=== PATIENT | female | born 1940 | race Caucasian/White ===

== ENCOUNTER 2022-02-12 08:37 | Day surgery (SDC) | payer OTHER, SELFPAY ==
[2022-02-12] MEDS: Tropicam./Phenyleph. (1/2.5%) 5 ML BTL OS ×3 (09:25→09:46)
[2022-02-12 09:26] VITALS: BP 144/74; PULSE 79; RESP 16; TEMP 36.5; O2SAT 98
--- NOTE | 2022-02-12 09:53 | ANES.PREOP_ITS ---
General Info Date of Service Date Performed: 02/12/22 Height: 5 ft 7.5 in Weight: 112.2 kg Body Mass Index (BMI): 38.1 Surgical Procedure: Operation Date: 02/12/22 11:40 Proposed Procedure Side Surgeon p Cataract Extraction with IOL Implant Left Roque Llanes MD Meds Allergies and Home Medications Allergies Allergy/AdvReac Type Severity Reaction Status Date / Time No Known Allergies Allergy Unverified 02/09/22 14:02 Home Medication Medication Instructions Recorded acarbose 50 mg tablet 1 tab PO TID 02/09/22 amlodipine 5 mg tablet 1 tab PO DAILY 02/09/22 atorvastatin 10 mg tablet 1 tab PO DAILY 02/09/22 betamethasone dipropionate 0.05 % 1 applic topical BID 02/09/22 topical cream biotin 5 mg tablet 5 mg PO DAILY 02/09/22 cholecalciferol (vitamin D3) 125 125 mcg PO DAILY 02/09/22 mcg (5,000 unit) tablet (Vitamin D3) glipizide 10 mg tablet, extended 2 tab PO QAM 02/09/22 release 24 hr insulin glargine 100 unit/mL (3 34 unit subcut BID 02/09/22 mL) subcutaneous pen (Basaglar KwikPen U-100 Insulin) lactobacillus combination no.4 3 3 mmu cells PO DAILY 02/09/22 billion cell capsule (Probiotic) vitamin B complex-vitamin C-folic 1 tab PO DAILY 02/09/22 acid 400 mcg tablet Current Visit Medications: Current Medications Generic Name Dose Route Start Last Admin Trade Name Freq PRN Reason Stop Dose Admin Acetaminophen 1,000 mg 02/12/22 06:00 Acetaminophen 500 Mg Tab PO Q4H PRN PRN Miscellaneous Medication 0 ml 02/12/22 06:00 Prednisolone 1%, Moxifloxacin 0.5%, Nepafenac 0.1% 5ml Btl OS DIRECTED [facility] Miscellaneous Medication 0 ml 02/12/22 06:00 02/12/22 09:46 Tropicam./Phenyleph. (1/2.5%) 5 Ml Btl OS 1 drp DIRECTED JOSSELINE Administration Tetracaine HCl 0 ml 02/12/22 06:00 Tetracaine 0.5% 4 Ml Btl OS DIRECTED [facility] Medical History Medical History (Updated 02/12/22 @ 10:16 by Roque Llanes MD) Breast cancer been in remission x10 years Cataract CKD (chronic kidney disease) Colon cancer been in remission x10 years Diabetes mellitus HLD (hyperlipidemia) [place] (hard of hearing) HTN (hypertension) Uterine cancer been in remission x 10 years Medical History Comments:: 02/12/22 pt reports nausea when laid flat Surgical History Surgical History History of partial mastectomy Hx of cholecystectomy Hx of hysterectomy Tobacco Smoking/Tobacco Use Status: Never Alcohol Alcohol Intake: never Substance Use Substance use: Never Substance use type: does not use Vital Signs and Lab Results Vital Signs Most Recent Vital Signs in EMR: Most Recent Vital Signs Temp Pulse Resp BP Pulse Ox 36.5 C 79 16 144/74 H 98 02/12/22 09:26 02/12/22 09:26 02/12/22 09:26 02/12/22 09:26 02/12/22 09:26 Point of Care Results Point of Care Results: 143 Lab Results Blood Type / Crossmatch: No Data to Display Complete Blood Count: No Data to Display Complete Metabolic Panel: No Data to Display Liver Function Panel: No Data to Display Coagulation Panel: No Data to Display Cardiac Panel: No Data to Display Arterial Blood Gas: No Data to Display Venous Blood Gas: No Data to Display Pancreas Panel: No Data to Display Thyroid Panel: No Data to Display Infectious Disease: No Data to Display Blood Cultures: No Data to Display Toxicology Panel: No Data to Display Anesthesia Assessment and Plan Anesthesia History Personal History: No History of Anesthesia Complications Family History: No Family History of Anesthesia Complications Exercise Tolerance Exercise Tolerance: Metabolic Equivalents>4 Pertinent Negatives Pertinent Negatives: No Symptoms of GERD, No Major Cardiovascular Symptoms or Complaints and No Major Pulmonary Symptoms or Complaints Cardiac & Pulmonary Exam Cardiac Exam: Normal S1/S2 Heart Sounds Pulmonary Exam: Clear Bilateral Breath Sounds Implantable Cardiac Device Does patient have a Pacemaker or an ICD?: No Airway Exam Known Difficult Airway: No Mallampati Class: 2 Mouth Opening: Normal (> 3cm) Thyromental Distance: Greater than 3 cm Neck Range of Motion: Full ROM Neck Circumference: Normal Teeth Condition: Normal Dentition ASA Classification ASA Score: ASA 3 Emergency Case?: No NPO Status NPO Status: NPO Clears >2 hours, Solids >8 hours Anesthesia Plan Resuscitation Status: Full Code Anesthesia Technique: MAC Anesthesia Airway Planned: Natural Airway Monitors Used: Standard Monitors
[2022-02-12 10:23] VITALS: BMI 38.1
[2022-02-12] MEDS: Balanced Salt Soln.-PLUS 500 ML BAG (10:37)
[2022-02-12] MEDS: Tetracaine 0.5% 4 ML BTL OS (10:37)
[2022-02-12] MEDS: Lidocaine 2% Jelly 6 ML SYR (10:39)
[2022-02-12] MEDS: Povidone-Iodine Ophth 30 ML BTL (10:40)
[2022-02-12 10:58] VITALS: BP 117/94; PULSE 72; RESP 16; TEMP 36.1; O2SAT 97
--- NOTE | 2022-02-12 10:59 | ROE_ITS ---
Date of service: 02/12/22 Time of Service: 10:59 Operative Note Operative Note DATE OF PROCEDURE: 02/12/22 PRE-OP DIAGNOSIS: Nuclear/cortical cataract, left eye POST-OP DIAGNOSIS: same PROCEDURE: Cataract extraction using phacoemulsification with intraocular lens implant, left eye SURGEON: Roque Llanes ANESTHESIA TYPE: Local By Surgeon and MAC Refer to Anesthesia Record PATHOLOGY: none sent COMPLICATIONS: None Patient was transported to: same day Patient's condition: stable Implants: Kv[employer] Kvng / [employer] Tecnis [id number] Indications: Progressive decreased vision due to cataract, left eye Procedure Description: CATARACT SURGERY OPERATIVE REPORT PREOPERATIVE DIAGNOSIS: 1. Nuclear/cortical cataract, left eye POSTOPERATIVE DIAGNOSIS: Same OPERATION: 1. Cataract extraction using phacoemulsification with posterior chamber intraocular lens implant, left eye. IOL: IOL Balance Sheet Analyst/Model: Kvng [employer] Kvng / SOLOMON Tecnis [id number] IOL Power: + 19.0 diopters IOL Serial Number: [id number] Optic Diameter: 6.0 mm Haptic/Overall Diameter: 13.0 mm PHACO INFO: Elpid[employer]ange[employer] Vision System with OZil and Active Fluidics Cumulative Dispersed Energy (CDE): 24.84 seconds SURGEON: Roque Llanes MD, ZEINAB ANESTHESIA: Monitored [facility] (MAC), with local sub-tenon's anesthetic infiltration COMPLICATIONS: None SPECIMENS: None INDICATIONS FOR PROCEDURE: The patient is an 81-year-old lady with history of diminished visual acuity in her left eye secondary to development of significant nuclear and cortical cataract. The option of cataract surgery was offered to the patient and she wished to proceed she has a history of myopia and does a lot of near work. She would like to remain myopic postoperatively. Postoperative refractive target is -2.50 diopters. PROCEDURE: The correct surgical eye was identified and marked as the left eye and the pupil was dilated in the preoperative area using mydriatics and cycloplegics. The dilated pupil size was 7.0 mm. the patient elected to proceed without oral sedation. The patient was brought to the operating room where cardiopulmonary monitoring was instituted and surgical time-out was performed, confirming the correct operative eye and IOL power. Topical anesthesia was administered and ophthalmic povidone-iodine 5% was instilled into the conjunctival fornices. Lidocaine gel was applied to the cornea and the hunter-ocular area was prepped with Betadine 10% solution and draped in the usual sterile fashion for intraocular surgery, including an aperture drape. A Tegaderm transparent film dressing was cut in half and used to cover the lashes and lid margins. Care was taken to sequester the lashes and lid margins under the Tegaderm dressing. A lid speculum was placed between the lids of the operative eye and the Elpidio LuxOR Revalia operating microscope was maneuvered into position. Cortney scissors were then used to make a conjunctival buttonhole approximately 6mm posterior to the limbus in the inferonasal quadrant. Blunt dissection was carried out to expose bare sclera, and a blunt-tipped sub-tenon?s anesthesia cannula was introduced and passed posteriorly along the globe where non- preserved plain lidocaine was injected into posterior sub-Tenon?s space. A sideport knife was used to make a paracentesis port superiorly/superiortemporally. Intraocular phenylephrine/lidocaine was injected int the anterior chamber.. The anterior chamber was filled with viscoelastic. A keratome knife was used to construct a 2-plane near-clear corneal tunnel extending 2.0mm into clear cornea temporally. A flap was raised on the anterior capsule and capsulorhexis forceps were used to complete a continuous curvilinear capsulorhexis of 4.8 mm. Balanced salt solution was then used to perform cortical cleaving hydrodissection and nuclear hydrodelineation until the lens could be freely rotated within the capsular bag. The lens nucleus was then disassembled and removed within the capsular bag and iris plane using phacoemulsification. Residual cortical material was removed using the 45-degree angled silicone I/A tip with 0.3mm port. The posterior capsule was carefully polished to remove as much residual lens epithelial cells as safely possible. The capsular bag was then inflated and the anterior chamber deepened with viscoelastic. The lens implant described above was inserted into the capsular bag using the SOLOMON [place] Injector. A Kuglen hook was used to dial the IOL into position. Residual viscoelastic was then removed first from posterior to the IOL, then from the anterior chamber using the I/A handpiece. The lens implant was noted to center nicely within the capsular bag. The incisions were stromally hydrated, and the anterior chamber was reformed using BSS. Then 0.5cc of moxifloxacin 1.0mg/ml were injected into the capsular bag and anterior chamber. The incisions were checked with a Weck spear and found to be secure. Several drops of ophthalmic povidone-iodine 5% were then applied to the eye followed by two drops of Imprimis combination prednisolone/moxifloxacin/nepafenac solution. The drapes were removed and a clear plastic protective eye shield was placed over the eye. The patient was then returned to Same Day Surgery in stable condition.
--- NOTE | 2022-02-12 10:59 | W.PM.DSUDISC ---
Discharge Plan Disposition Patient Disposition: HOME Condition: Good Discharge Details Attending Provider: Roque Llanes Primary Care Provider: None,None Home Meds and New Rx's Prescriptions: No Action atorvastatin 10 mg tablet 1 tab PO DAILY Label Comments: Take 1 tablet by mouth once a day to prevent heart attack and stroke glipizide 10 mg tablet extended release 24hr 2 tab PO QAM Label Comments: Take 2 tablets by mouth every morning for glucose control acarbose 50 mg tablet 1 tab PO TID Label Comments: Take 1 tablet by mouth up to 3 times a day with meals amlodipine 5 mg tablet 1 tab PO DAILY Label Comments: Take 1 tablet by mouth every evening for blood pressure control betamethasone dipropionate 0.05 % cream 1 applic TOPICAL BID Label Comments: Apply a small amount to affected area twice a day as needed for itching biotin 5 mg Tablet 5 mg PO DAILY insulin glargine [Basaglar KwikPen U-100 Insulin] 100 unit/mL (3 mL) insulin pen 34 unit SUBCUT BID Label Comments: INJECT 34 UNITS SUBCUTANEOUSLY TWICE A DAY FOR GLUCOSE CONTROL TITRATING UP B complex-vitamin C-folic acid 400 mcg tablet 1 tab PO DAILY Label Comments: Take 1 tablet by mouth once a day cholecalciferol (vitamin D3) [Vitamin D3] 125 mcg (5,000 unit) Tablet 125 mcg PO DAILY Probiotic 3 billion cell Capsule 3 mmu cells PO DAILY Discharge Instructions Stand Alone Forms: Post-op Topical Cataract, Sadi Agosto (DSU) Discharge Orders Discharge Orders: Discharge Order (Routine); Ordered 02/12/22 Ordered By: Roque Llanes DS: Diagnosis Discharge Diagnosis (1) Nuclear sclerotic cataract of left eye: Status: Resolved (2) Cortical cataract of left eye: Status: Resolved
--- NOTE | 2022-02-12 11:35 | W.ANESPOSTOP ---
Postoperative Evaluation Date, Time and Location Date Performed: 02/12/22 Time Performed: 11:02 Patient Location: Day Surgery Unit Vital Signs Most Recent Imported Vital Signs: Most Recent Vital Signs Temp Pulse Resp BP Pulse Ox 36.1 C L 72 16 117/94 H 97 02/12/22 10:58 02/12/22 10:58 02/12/22 10:58 02/12/22 10:58 02/12/22 10:58 Pain Score Most Recent Pain Score: Most Recent Pain Score Pain Level 0 02/12/22 10:58 Assessment Mental Status: Awake (Alert & Oriented to Patient Baseline) Airway and Respiratory Function: Patent airway with normal (patient baseline) respiratory exam Cardiovascular Function: Hemodynamically Stable Hydration Status: Adequately Hydrated Nausea & Vomiting: No Nausea or Vomiting Pain: Pt. Denies Any Pain Peripheral Nerve Block: Patient did not receive a nerve block
== END 2022-02-12 11:25 | disposition home or self-care (01) ==
PROVIDERS: Visit Provider Ophthalmology
PROC: (CPT 66984; principal; 2022-02-12 11:30)
DX: H25.12 Age-related nuclear cataract, left eye (principal); E11.22 Type 2 diabetes mellitus with diabetic chronic kidney disease; I12.9 Hypertensive chronic kidney disease with stage 1 through stage 4 chronic kidney disease, or unspecified chronic kidney disease; N18.9 Chronic kidney disease, unspecified
CPT/HCPCS: 66984; V2632

== ENCOUNTER 2022-02-26 11:04 | Day surgery (SDC) | payer OTHER, SELFPAY ==
--- NOTE | 2022-02-23 12:24 | HPE_ITS ---
Assessment and Plan Assessment and plan (1) Cortical cataract of right eye: Status: Acute Assessment and plan: Assessment: Visually significant cataract of the right eye. Plan: Cataract extraction with intraocular lens implantation (2) Nuclear sclerotic cataract of right eye: Status: Acute Assessment and plan: Assessment: Visually significant cataract of the right eye. Plan: Cataract extraction with intraocular lens implantation History of Present Illness History of Present Illness Chief Complaint: Progressive decreased vision right eye PFSH All Active Problems Cortical cataract of right eye (Acute) Nuclear sclerotic cataract of right eye (Acute) Medical History Breast cancer been in remission x10 years Cataract CKD (chronic kidney disease) Colon cancer been in remission x10 years Diabetes mellitus HLD (hyperlipidemia) [place] (hard of hearing) HTN (hypertension) Uterine cancer been in remission x 10 years Surgical History History of partial mastectomy Hx of cholecystectomy Hx of hysterectomy Social History Smoking/Tobacco Use Status: Never Smoking risk assessment performed?: Yes Alcohol Intake: never Drug use: Never Substance use type: does not use Do you feel safe at home: Yes Do you feel safe in your relationship?: Yes Meds Allergies and Home Medications Allergies Allergy/AdvReac Type Severity Reaction Status Date / Time No Known Allergies Allergy Unverified 02/09/22 14:02 Home Medications Medication Instructions Recorded Confirmed Type acarbose 50 mg tablet 1 tab PO TID 02/09/22 02/23/22 History amlodipine 5 mg tablet 1 tab PO DAILY 02/09/22 02/23/22 History atorvastatin 10 mg tablet 1 tab PO DAILY 02/09/22 02/23/22 History betamethasone dipropionate 0.05 % 1 applic topical BID 02/09/22 02/23/22 History topical cream biotin 5 mg tablet 5 mg PO DAILY 02/09/22 02/23/22 History cholecalciferol (vitamin D3) 125 125 mcg PO DAILY 02/09/22 02/23/22 History mcg (5,000 unit) tablet (Vitamin D3) glipizide 10 mg tablet, extended 2 tab PO QAM 02/09/22 02/23/22 History release 24 hr insulin glargine 100 unit/mL (3 34 unit subcut BID 02/09/22 02/23/22 History mL) subcutaneous pen (Basaglar KwikPen U-100 Insulin) lactobacillus combination no.4 3 3 mmu cells PO DAILY 02/09/22 02/23/22 History billion cell capsule (Probiotic) vitamin B complex-vitamin C-folic 1 tab PO DAILY 02/09/22 02/23/22 History acid 400 mcg tablet Exam Resp Auscultation: clear to auscultation bilaterally Cardio Rate: regular rate Rhythm: regular rhythm
--- NOTE | 2022-02-26 05:28 | W.ANESPRE ---
General Info Date of Service Date Performed: 02/26/22 Height: 5 ft 7.5 in Weight: 112.2 kg Body Mass Index (BMI): 38.1 Surgical Procedure: Operation Date: 02/26/22 12:55 Proposed Procedure Side Surgeon p Cataract Extraction with IOL Implant Right Roque Llanes MD Meds Allergies and Home Medications Allergies Allergy/AdvReac Type Severity Reaction Status Date / Time No Known Allergies Allergy Unverified 02/09/22 14:02 Home Medication Medication Instructions Recorded acarbose 50 mg tablet 1 tab PO TID 02/09/22 amlodipine 5 mg tablet 1 tab PO DAILY 02/09/22 atorvastatin 10 mg tablet 1 tab PO DAILY 02/09/22 betamethasone dipropionate 0.05 % 1 applic topical BID 02/09/22 topical cream biotin 5 mg tablet 5 mg PO DAILY 02/09/22 cholecalciferol (vitamin D3) 125 125 mcg PO DAILY 02/09/22 mcg (5,000 unit) tablet (Vitamin D3) glipizide 10 mg tablet, extended 2 tab PO QAM 02/09/22 release 24 hr insulin glargine 100 unit/mL (3 34 unit subcut BID 02/09/22 mL) subcutaneous pen (Basaglar KwikPen U-100 Insulin) lactobacillus combination no.4 3 3 mmu cells PO DAILY 02/09/22 billion cell capsule (Probiotic) vitamin B complex-vitamin C-folic 1 tab PO DAILY 02/09/22 acid 400 mcg tablet Current Visit Medications: Current Medications Generic Name Dose Route Start Last Admin Trade Name Freq PRN Reason Stop Dose Admin Acetaminophen 1,000 mg 02/26/22 06:00 Acetaminophen 500 Mg Tab PO Q4H PRN PRN Miscellaneous Medication 0 ml 02/26/22 06:00 Prednisolone 1%, Moxifloxacin 0.5%, Nepafenac 0.1% 5ml Btl OD DIRECTED [facility] Miscellaneous Medication 0 ml 02/26/22 06:00 Tropicam./Phenyleph. (1/2.5%) 5 Ml Btl OD DIRECTED JOSSELINE Tetracaine HCl 0 ml 02/26/22 06:00 Tetracaine 0.5% 4 Ml Btl OD DIRECTED JOSSELINE PFSH Active Problems Active Problems: Problem Status Onset Code Cortical cataract of right eye H26.9 Nuclear sclerotic cataract of right eye H25.11 Nuclear sclerotic cataract of left eye H25.12 Cortical cataract of left eye H26.9 Medical History Medical History Breast cancer been in remission x10 years Cataract CKD (chronic kidney disease) Colon cancer been in remission x10 years Diabetes mellitus HLD (hyperlipidemia) [place] (hard of hearing) HTN (hypertension) Uterine cancer been in remission x 10 years Surgical History Surgical History History of partial mastectomy Hx of cholecystectomy Hx of hysterectomy Tobacco Smoking/Tobacco Use Status: Never Alcohol Alcohol Intake: never Substance Use Substance use: Never Substance use type: does not use Vital Signs and Lab Results Vital Signs Most Recent Vital Signs in EMR: Temp Pulse Resp BP Pulse Ox 36.5 C 74 16 152/97 H 97 02/26/22 11:35 02/26/22 11:35 02/26/22 11:35 02/26/22 11:35 02/26/22 11:35 Lab Results Blood Type / Crossmatch: No Data to Display Complete Blood Count: No Data to Display Complete Metabolic Panel: No Data to Display Liver Function Panel: No Data to Display Coagulation Panel: No Data to Display Cardiac Panel: No Data to Display Arterial Blood Gas: No Data to Display Venous Blood Gas: No Data to Display Pancreas Panel: No Data to Display Thyroid Panel: No Data to Display Infectious Disease: No Data to Display Blood Cultures: No Data to Display Toxicology Panel: No Data to Display Anesthesia Assessment and Plan Anesthesia History Personal History: No History of Anesthesia Complications Family History: No Family History of Anesthesia Complications Exercise Tolerance Exercise Tolerance: Metabolic Equivalents>4 Cardiac & Pulmonary Exam Cardiac Exam: Normal S1/S2 Heart Sounds Pulmonary Exam: Clear Bilateral Breath Sounds Implantable Cardiac Device Does patient have a Pacemaker or an ICD?: No Airway Exam Known Difficult Airway: No Mallampati Class: 2 Mouth Opening: Normal (> 3cm) Thyromental Distance: Greater than 3 cm Neck Range of Motion: Full ROM Neck Circumference: Normal Teeth Condition: Normal Dentition ASA Classification ASA Score: ASA 3 Emergency Case?: No NPO Status NPO Status: NPO Clears >2 hours, Solids >8 hours Anesthesia Plan Resuscitation Status: Full Code Anesthesia Technique: MAC Anesthesia Airway Planned: Natural Airway Monitors Used: Standard Monitors Preoperative Comments:: 81 yo female for repeat cataract. Sig PMHx: CKD, DM, HTN, colon [place], [place], never smoker/EtOH. previous Cat: no MKO. no interval change, would like to proceed as no MKO again.
[2022-02-26 11:30] VITALS: BMI 38.1
[2022-02-26 11:35] VITALS: BP 152/97; PULSE 74; RESP 16; TEMP 36.5; O2SAT 97
[2022-02-26] MEDS: Tropicam./Phenyleph. (1/2.5%) 5 ML BTL OD ×3 (11:48→12:00)
[2022-02-26] MEDS: Lidocaine 2% Jelly 6 ML SYR (12:26)
[2022-02-26] MEDS: Tetracaine 0.5% 4 ML BTL OD (12:26)
[2022-02-26] MEDS: Balanced Salt Soln.-PLUS 500 ML BAG (12:34)
[2022-02-26] MEDS: Duovisc Viscoelastic System EACH 1 EACH (12:34)
[2022-02-26] MEDS: Povidone-Iodine Ophth 30 ML BTL (12:35)
[2022-02-26] MEDS: Trypan Blue 0.06% 0.5 ML SYR (12:36)
[2022-02-26] MEDS: Lidocaine 1% Multi-Dose 10 ML VIAL (12:36)
--- NOTE | 2022-02-26 12:57 | W.PM.DSUDISC ---
Discharge Plan Disposition Patient Disposition: HOME Condition: Good Discharge Details Attending Provider: Roque Llanes Primary Care Provider: None,None Home Meds and New Rx's Prescriptions: No Action atorvastatin 10 mg tablet 1 tab PO DAILY Label Comments: Take 1 tablet by mouth once a day to prevent heart attack and stroke glipizide 10 mg tablet extended release 24hr 2 tab PO QAM Label Comments: Take 2 tablets by mouth every morning for glucose control acarbose 50 mg tablet 1 tab PO TID Label Comments: Take 1 tablet by mouth up to 3 times a day with meals amlodipine 5 mg tablet 1 tab PO DAILY Label Comments: Take 1 tablet by mouth every evening for blood pressure control betamethasone dipropionate 0.05 % cream 1 applic TOPICAL BID Label Comments: Apply a small amount to affected area twice a day as needed for itching biotin 5 mg Tablet 5 mg PO DAILY insulin glargine [Basaglar KwikPen U-100 Insulin] 100 unit/mL (3 mL) insulin pen 34 unit SUBCUT BID Label Comments: INJECT 34 UNITS SUBCUTANEOUSLY TWICE A DAY FOR GLUCOSE CONTROL TITRATING UP B complex-vitamin C-folic acid 400 mcg tablet 1 tab PO DAILY Label Comments: Take 1 tablet by mouth once a day cholecalciferol (vitamin D3) [Vitamin D3] 125 mcg (5,000 unit) Tablet 125 mcg PO DAILY Probiotic 3 billion cell Capsule 3 mmu cells PO DAILY Discharge Instructions Stand Alone Forms: Post-op Topical Cataract, Sadi Agosto (DSU) Discharge Orders Discharge Orders: Discharge Order (Routine); Ordered 02/26/22 Ordered By: Roque Llanes DS: Diagnosis Discharge Diagnosis (1) Cortical cataract of right eye: Status: Resolved (2) Nuclear sclerotic cataract of right eye: Status: Resolved
[2022-02-26 12:58] VITALS: BP 153/63; PULSE 75; RESP 18; TEMP 36.6; O2SAT 97
--- NOTE | 2022-02-26 12:58 | ROE_ITS ---
Date of service: 02/26/22 Time of Service: 12:59 Operative Note Operative Note DATE OF PROCEDURE: 02/26/22 PRE-OP DIAGNOSIS: Nuclear/cortical cataract, right eye Poor red reflex, right eye secondary to cataract POST-OP DIAGNOSIS: same PROCEDURE: Cataract extraction using phacoemulsification with intraocular lens implantation, right eye, using capsular staining with Vision Blue SURGEON: Roque Llanes ANESTHESIA TYPE: Local By Surgeon and MAC Refer to Anesthesia Record PATHOLOGY: none sent COMPLICATIONS: None Patient was transported to: same day Patient's condition: stable Implants: [employer] / [employer] Tecnis [id number] Indications: Progressive visual loss due to cataract, right eye Procedure Description: CATARACT SURGERY OPERATIVE REPORT PREOPERATIVE DIAGNOSIS: 1. Nuclear/cortical cataract, right eye 2. Poor red reflex secondary to #1 POSTOPERATIVE DIAGNOSIS: Same OPERATION: 1. Cataract extraction using phacoemulsification with posterior chamber intraocular lens implant, right eye. 2. 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 She has already undergone cataract surgery in her left eye is doing well postoperatively. She now presents for cataract surgery in her right eye. Postoperative refractive target is -2.50 diopters. PROCEDURE: The correct surgical eye was identified and marked as the right eye and the pupil was dilated in the preoperative area using mydriatics and cycloplegics. The dilated pupil size was 7.0 mm. The patient elected to proceed without oral sedation. The patient was brought to the operating room where cardiopulmonary monitoring was instituted and surgical time-out was performed, confirming the correct operative eye and IOL power. Topical anesthesia was administered and ophthalmic povidone-iodine 5% was instilled into the conjunctival fornices. Lidocaine gel was applied to the cornea and the hunter-ocular area was prepped with Betadine 10% solution and draped in the usual sterile fashion for intraocular surgery, including an aperture drape. A Tegaderm transparent film dressing was cut in half and used to cover the lashes and lid margins. Care was taken to sequester the lashes and lid margins under the Tegaderm dressing. A lid speculum was placed between the lids of the operative eye and the Elpidio Lux[employer] Rev[employer] operating microscope was maneuvered into position. Cortney scissors were then used to make a conjunctival buttonhole approximately 6mm posterior to the limbus in the inferonasal quadrant. Blunt dissection was carried out to expose bare sclera, and a blunt-tipped sub-tenon?s anesthesia cannula was introduced and passed posteriorly along the globe where non- preserved plain lidocaine was injected into posterior sub-Tenon?s space. A sideport knife was used to make a paracentesis port inferotemporally. Intraocular phenylephrine/lidocaine was injected into the anterior chamber. Air was injected into the anterior chamber, followed by Vision Blue, which was painted over the anterior capsule and then irrigated out with BSS. The anterior chamber was filled with viscoelastic. A keratome knife was used to create a 2- plane near clear corneal tunnel extending approximately 2 mm into clear cornea superior temporally.. A flap was raised on the anterior capsule and capsulorhexis forceps were used to complete a continuous curvilinear capsulorhexis of 5.5 mm. Balanced salt solution was then used to perform cortical cleaving hydrodissection and nuclear hydrodelineation until the lens could be freely rotated within the capsular bag. The lens nucleus was then disassembled and re moved within the capsular bag and iris plane using phacoemulsification. Residual cortical material was removed using the I/A handpiece. The posterior capsule was carefully polished to remove as much residual lens epithelial cells as safely possible. The capsular bag was then inflated and the anterior chamber deepened with viscoelastic. The lens implant described above was inserted into the capsular bag using the SOLOMON [employer] Injector. A Kuglen hook was used to dial the IOL into position. Residual viscoelastic was then removed first from posterior to the IOL, then from the anterior chamber using the I/A handpiece. The lens implant was noted to center nicely within the capsular bag. The incisions were stromally hydrated, and the anterior chamber was reformed using BSS. Then 0.5cc of moxifloxacin 1.0mg/ml were injected into the capsular bag and anterior chamber. The incisions were checked with a Weck spear and found to be secure. Several drops of ophthalmic povidone-iodine 5% were then applied to the eye followed by two drops of Imprimis combination prednisolone/moxifloxacin/nepafenac solution. The drapes were removed and a clear plastic protective eye shield was placed over the eye. The patient was then returned to Same Day Surgery in stable condition.
--- NOTE | 2022-02-26 13:33 | W.ANESPOSTOP ---
Postoperative Evaluation Date, Time and Location Date Performed: 02/26/22 Time Performed: 13:05 Patient Location: Day Surgery Unit Vital Signs Most Recent Imported Vital Signs: Most Recent Vital Signs Temp Pulse Resp BP Pulse Ox 36.6 C 75 18 153/63 H 97 02/26/22 12:58 02/26/22 12:58 02/26/22 12:58 02/26/22 12:58 02/26/22 12:58 Pain Score Most Recent Pain Score: Most Recent Pain Score Pain Level 0 02/26/22 12:58 Assessment Mental Status: Awake (Alert & Oriented to Patient Baseline) Airway and Respiratory Function: Patent airway with normal (patient baseline) respiratory exam Cardiovascular Function: Hemodynamically Stable Hydration Status: Adequately Hydrated Nausea & Vomiting: No Nausea or Vomiting Pain: Pt. Denies Any Pain Peripheral Nerve Block: Patient did not receive a nerve block
== END 2022-02-26 13:16 | disposition home or self-care (01) ==
PROVIDERS: Visit Provider Ophthalmology
PROC: (CPT 66982; principal; 2022-02-26 12:45)
DX: H25.11 Age-related nuclear cataract, right eye (principal); H26.8 Other specified cataract; N18.9 Chronic kidney disease, unspecified; I12.9 Hypertensive chronic kidney disease with stage 1 through stage 4 chronic kidney disease, or unspecified chronic kidney disease; E11.22 Type 2 diabetes mellitus with diabetic chronic kidney disease
CPT/HCPCS: 66982; V2632